=== PATIENT | male | born 1995 | race Two or more races ===

== ENCOUNTER 2024-09-02 00:25 | Emergency (ER) | payer OTHER ==
[~2024-09-02] VITALS: Ht 175.3 cm; Wt 86.5 kg
--- NOTE | 2024-09-02 00:52 | ED.PDOC ---
History of Present Illness HPI Comments 28 y/o M presents with c/c shortness of breath w/exertion, cough, wheezing, and chest congestion. Patient endorses on 1x week history of symptoms. He states on noticing wheezing whenever laying pronated in addition to having 'clear, thick salvia-like' production whenever he coughs. Symptoms is reported to have worsened over the past 2x hours prior to arrival. Attempted to take Mucinex for symptoms, with no relief or improvement. Patient endorses on having no significant medical history along with any relevant recent life-events, such as travel or known sick contact. Denies any chest pain, fever, chills, or further associated symptoms. Upon arrival to ED triage, patient was found with a SpO2 of 88-92% on RA and pulse rate of 120-130. Chief Complaint: Shortness of Breath Time Seen by MD: 00:40 Reviewed Notes: Nurses Notes, Medications, Allergies Allergies: Coded Allergies: NO KNOWN ALLERGIES (Unverified , 09/02/24) Information Source: Patient Mode of Arrival: Ambulatory Severity: Moderate Timing: Days Duration: Since onset Prehospital treatment: None Past Medical History PAST MEDICAL HISTORY: Denies Surgical History: Denies all surgeries Family History Family History: Unknown Social History Smoker: Non-Smoker Alcohol: Denies ETOH Use Drugs: Denies Drug Use Lives In: Home All Other Systems: Reviewed and Negative (Comprehensive systems review obtained and negative except for what is stated in the HPI.) Physical Exam General Appearance: No Apparent Distress, Normal HEENT: Normal ENT Inspection, Pharynx Normal, TMs Normal Neck: Full Range of Motion, Non-Tender, Normal, Normal Inspection Respiratory: Chest Non-Tender, Lungs Clear, No Accessory Muscle Use, No Respiratory Distress, Normal Breath Sounds, Other (tachpneic ) Cardiovascular: No Edema, No JVD, No Murmur, No Gallop, Normal Peripheral Pulses, Tachycardia, Other (regular rhythm ) Breast Exam: Deferred Gastrointestinal: No Organomegaly, Non Tender, No Pulsatile Mass, Normal Bowel Sounds, Soft Genitalia: Deferred Pelvic: Deferred Rectal: Deferred Extremities: No calf tenderness, Normal capillary refill, Normal inspection, Normal range of motion, Non-tender, No pedal edema Musculoskeletal : Apperance: Normal Neurologic: Alert, recruitment director II-XII nml as Tested, No Motor Deficits, Normal Affect, Normal Mood, No Sensory Deficits Cerebellar Function: Normal Reflexes: Normal Skin: Dry, Normal Color, Warm Lymphatic: No Adenopathy Was a procedure done? Was a procedure done?: No EKG EKG #1: Pulse Rate (adult): 127 [place]: Normal Cardiac Rhythm: ST Block: None Hypertrophy: None ST: Normal EKG #2: Pulse Rate (adult): 120 Cardiac Rhythm: ST Block: None Hypertrophy: None ST: Normal Differential Dx Considerations may include: URI, PNA, viral syndrome, KS, PE, ACS, among others X-Ray, Labs, Meds, VS Vital Signs Date Time Temp Pulse Resp B/P (MAP) Pulse Ox O2 Delivery O2 Flow Rate FiO2 09/02/24 05:30 97.6 95 20 149/102 (118) 99 97.6 09/02/24 03:40 96 09/02/24 03:18 120 09/02/24 01:39 120 09/02/24 01:12 14 96 Nasal Cannula* 2 28 09/02/24 00:52 127 09/02/24 00:49 127 09/02/24 00:40 98.7 129 16 141/95 (110) 92 98.7 Lab Test 09/02/24 01:32 09/02/24 00:48 Range/Units Troponin I High Sensitivity < 3 L < 3 L </=54 ng/L White Blood Count 14.1 H 4.4-10.8 10^3/uL Red Blood Count 4.93 4.5-5.90 10^6/uL Hemoglobin 15.8 13.5-17.5 g/dL Hematocrit 46.4 41.0-53.0 % Mean Corpuscular Volume 94.0 80.0-100.0 fL Mean Corpuscular Hemoglobin 32.0 28.0-32.0 pg Mean Corpuscular Hemoglobin Concent 34.0 32.0-36.0 g/dL Red Cell Distribution Width 13.2 11.8-14.3 % Platelet Count 395 140-450 10^3/uL Mean Platelet Volume 7.8 6.9-10.8 fL Neutrophils (%) (Auto) 69.9 37.0-80.0 % Lymphocytes (%) (Auto) 15.4 10.0-50.0 % Monocytes (%) (Auto) 6.9 0.0-12.0 % Eosinophils (%) (Auto) 7.3 H 0.0-7.0 % Basophils (%) (Auto) 0.5 0.0-2.0 % Neutrophils # (Auto) 9.8 H 1.6-8.6 10 ^3/uL Lymphocytes # (Auto) 2.2 0.4-5.4 10 ^3/uL Monocytes # (Auto) 1.0 0-1.3 10 ^3/uL Eosinophils # (Auto) 1.0 H 0-0.8 10 ^3/uL Basophils # (Auto) 0.1 0-0.2 10 ^3/uL Nucleated Red Blood Cells 0.1 % Sodium Level 140 136-145 mmol/L Potassium Level 3.9 3.5-5.1 mmol/L Chloride Level 105 98-107 mmol/L Carbon Dioxide Level 26 20-31 mmol/L Anion Gap 9 5-15 Blood Urea Nitrogen 12 9-23 mg/dL Creatinine 1.23 0.700-1.30 mg/dL Glomerular Filtration Rate Calc 81 >90 mL/min BUN/Creatinine Ratio 9.8 L 10.0-20.0 Serum Glucose 140 H 74-106 mg/dL Lactic Acid Level 0.9 0.4-2.0 mmol/L Calcium Level 9.8 8.7-10.4 mg/dL Current Medications Medications (Trade) Dose Ordered Sig/Jaja Route Start Time Stop Time Status Last Admin Albuterol (Ventolin Medneb) 5 mg ONCE ONCE NEB 09/02/24 00:45 09/02/24 00:46 DC 09/02/24 01:11 Ipratropium [place] (Atrovent Medneb) 0.5 mg ONCE ONCE NEB 09/02/24 00:45 09/02/24 00:46 DC 09/02/24 01:11 Sodium Chloride 1,000 ml @ 1,000 mls/hr Q1H ONCE IV 09/02/24 00:45 09/02/24 01:44 DC 09/02/24 04:[address] [address] Ph: [phone] DIAGNOSTIC IMAGING Diagnostic Imaging Report : [id number] Signed PATIENT: MYRIAM WELCH ACCT: [id number] UNIT: [id number] : 1995 LOC: ER ROOM / BED: / AGE / SEX: 28 / M ADM STATUS: REG ER SERVICE 0044 ORDERING PHYSICIAN: PROSPER LOUISE MD PROCEDURE(s): CXRP - CHEST PORTABLE REASON: sob ORDER NUMBER(s): [id number], ACCESSION NUMBER(s): [id number] CHEST RADIOGRAPH Indication: sob Technique: Single frontal view of the chest was obtained COMPARISON: None FINDINGS: Lines and Tubes: None Lungs: Clear Pleura: No effusion. No pneumothorax. Cardiomediastinal contours: Unremarkable Bones: Unremarkable IMPRESSION: 1. No acute disease. ATED BY: BANDAR HERMOSILLO MD DICTATED DATE/TIME: 09/02/24142 SIGNED BY: BANDAR HERMOSILLO MD SIGNED DATE/TIME: 09/02/24142 CC: Time of 1ST Reevaluation: 01:20 Reevaluation 1ST: Unchanged Patient Education/Counseling: Diagnosis, Treatment, Need For Follow Up Family Education/Counseling: No Family Present Additional Information Previous visits reviewed: N/A The following tests were ordered, and results were reviewed by me: CXR, CBC, BMP, blood culture, troponin, lactic acid w/reflex Additional Information was gathered from interviewing the following independent historians: N/A I reviewed and agreed with the following test results read by other providers: CXR I discussed treatment and results with medical personnel and: patient SEPSIS Sepsis Screen Physician Orders Blood Culture (09/02/24 00:44) Chest Portable (09/02/24 00:44) Electrocardigram (09/02/24 01:44) Electrocardigram (09/02/24 03:44) Covid19 Antigen Any[place] (09/02/24 ) Rapid Influenza A&B (09/02/24 03:17) Vital Signs Date Time Temp Pulse Resp B/P (MAP) Pulse Ox O2 Delivery O2 Flow Rate FiO2 09/02/24 05:30 97.6 95 20 149/102 (118) 99 97.6 09/02/24 03:40 96 09/02/24 03:18 120 09/02/24 01:39 120 09/02/24 01:12 14 96 Nasal Cannula* 2 28 09/02/24 00:52 127 09/02/24 00:49 127 09/02/24 00:40 98.7 129 16 141/95 (110) 92 98.7 Laboratory Tests Test 09/02/24 00:48 Lactic Acid Level 0.9 mmol/L (0.4-2.0) White Blood Count 14.1 10^3/uL (4.4-10.8) H Medications Medications Dose Ordered Sig/Jaja Route Start Time Stop Time Status Last Admin Dose Admin Albuterol 5 mg ONCE ONCE NEB 09/02/24 00:45 09/02/24 00:46 DC 09/02/24 01:11 Ipratropium [place] 0.5 mg ONCE ONCE NEB 09/02/24 00:45 09/02/24 00:46 DC 09/02/24 01:11 Sodium Chloride 1,000 ml @ 1,000 mls/hr Q1H ONCE IV 09/02/24 00:45 09/02/24 01:44 DC 09/02/24 04:36 Departure 1 Departure Time of Disposition: 06:02 (Patient is feeling significantly better. Patient likely an asthma exacerbation we will discharge patient home with outpatient follow up) Impression: Primary Impression: Shortness of breath Disposition: 01 HOME / SELF CARE / HOMELESS Condition: Stable Additional Instructions: You likely had an asthma exacerbation. You should use your inhaler as directed. Your prescribed steroids. Please take as directed. It is important to follow up with the regular doctor within 1 week. If your symptoms worsen or you have any other concerns please return to the emergency room. e-Prescriptions Albuterol Sulfate (VENTOLIN MDI) 90 Mcg Ih 90 MCG IN QID for 10 Days, #1 INH Prov: PROSPER LOUISE MD 09/02/24 Prednisone (Prednisone) 20 Mg Tab 40 MG PO DAILY for 5 Days, #10 MG Prov: PROSPER LOUISE MD 09/02/24 Discharged With: Self Critical Care Note Critical Care Time?: No Stability Stability form required: No Heart Score Heart Score: Heart Score Response (Comments) Value History Slightly Suspicious 0 EKG Normal 0 Age <45 0 Risk Factors No known risk factors 0 Troponin Normal limit 0 Total 0 I personally scribed for PROSPER LOUISE MD ([email or web address]) on 09/02/24 at 00:52. Electronically submitted by Jimmy Monroe ([email or web address]). I personally scribed for PROSPER LOUISE MD ([email or web address]) on 09/02/24 at 03:18. Electronically submitted by Jimmy Monroe ([email or web address]). PROSPER LOUISE MD Sep 02, 2024 00:52
[2024-09-02 01:01] LABS: Hematocrit 46.4 % (41.0-53.0); Hemoglobin 15.8 g/dL (13.5-17.5); Mean Corpuscular Hemoglobin 32.0 pg (28.0-32.0); Mean Corpuscular Volume 94.0 fL (80.0-100.0); Nucleated Red Blood Cells % 0.1 %
[2024-09-02 01:09] LABS: Chloride 105 mmol/L (98-107); Potassium 3.9 mmol/L (3.5-5.1); Sodium 140 mmol/L (136-145)
[2024-09-02 01:10] LABS: Anion Gap 9 (5-15); Carbon Dioxide 26 mmol/L (20-31)
[2024-09-02 01:11] LABS: Calcium 9.8 mg/dL (8.7-10.4)
[2024-09-02] MEDS: IPRATROPIUM BROM 0.5 MG/2.5ML INH SOL NEB ONE (01:11)
[2024-09-02] MEDS: ALBUTEROL SULF 2.5 MG/0.5ML(0.5%) NEB SOLN NEB ONE (01:11)
[2024-09-02 01:16] LABS: BUN/Creatinine Ratio 9.8 (10.0-20.0); Blood Urea Nitrogen 12 mg/dL (9-23)
[2024-09-02 01:19] LABS: Glucose 140 mg/dL (74-106)
--- NOTE | 2024-09-02 01:46 | DVH ---
CHEST RADIOGRAPH Indication: sob Technique: Single frontal view of the chest was obtained COMPARISON: None FINDINGS: Lines and Tubes: None Lungs: Clear Pleura: No effusion. No pneumothorax. Cardiomediastinal contours: Unremarkable Bones: Unremarkable IMPRESSION: 1. No acute disease.
[2024-09-02] MEDS: SODIUM CHLORIDE 0.9% 1,000 ML IV ONE (04:36)
[2024-09-02 05:30] VITALS: BP 149/102; PULSE 95; TEMP 97.6; O2SAT 99
--- NOTE | 2024-09-02 05:55 | ECG ---
[facility] Test Date: 2024-09-02 Test Time: 03:40:19 Pat Name: MYRIAM WELCH Department: ED Room: Gender: M Computer Help Desk Representative: CLAIRE : 1995 Requested By: PROSPER LOUISE Order Number: [id number] Reading MD: Angel Menard Measurements Intervals [place] Rate: 96 P: 37 IN: 112 QRS: 20 QRSD: 82 T: 13 QT: 344 QTc: 435 Interpretive Statements Sinus rhythm Borderline short IN interval Inferior infarct, old Electronically Signed On 09-04-2024 15:55:42 PDT by Angel Menard Please click the below link to view image of tracing.
[2024-09-02 06:00] VITALS: RESP 16
[2024-09-02] MEDS ORDERED: ALBUAER3 IN (06:03)
[2024-09-02] MEDS ORDERED: PRED20TA2 PO (06:03)
--- NOTE | 2024-09-04 07:51 | ECG ---
[facility] Test Date: 2024-09-02 Test Time: 01:39:40 Pat Name: MYRIAM WELCH Department: ED Room: Gender: M Automotive Design Drafter: levi : 1995 Requested By: PROSPER LOUISE Order Number: [id number] Reading MD: Angel Menard Measurements Intervals [place] Rate: 120 P: 62 MA: 116 QRS: 14 QRSD: 78 T: 4 QT: 307 QTc: 434 Interpretive Statements Sinus tachycardia Borderline T wave abnormalities Electronically Signed On 09-04-2024 15:55:30 PDT by Angel Menard Please click the below link to view image of tracing.
--- NOTE | 2024-09-04 07:51 | ECG ---
[facility] Test Date: 2024-09-02 Test Time: 00:49:23 Pat Name: MYRIAM WELCH Department: ED Room: Gender: M Instrument Repairer Helper: KEVIN : 1995 Requested By: PROSPER LOUISE Order Number: [id number] Reading MD: Angel Menard Measurements Intervals [place] Rate: 127 P: 64 VA: 103 QRS: 42 QRSD: 74 T: 38 QT: 291 QTc: 424 Interpretive Statements Sinus tachycardia Electronically Signed On 09-04-2024 15:55:25 PDT by Angel Menard Please click the below link to view image of tracing.
== END 2024-09-02 06:29 | disposition home or self-care (01) ==
LOC: ER 00:25
DX: R06.02 Shortness of breath (principal)
CPT/HCPCS: 36415; 71045; 80048; 83605; 84484; 85025; 87040; 93005; 94640; 96360; 99285; J7030

== ENCOUNTER 2025-01-16 17:13 | Emergency (ER) | payer OTHER ==
[~2025-01-16] VITALS: Ht 175.3 cm; Wt 180.0 kg
[~2025-01-16 17:13] MED LIST: ALBUAER3 IN; PRED20TA2 PO
[2025-01-16 17:48] VITALS: PULSE 126; RESP 15; O2SAT 95
--- NOTE | 2025-01-16 18:21 | ED.PDOC ---
SOB-HPI HPI Comments 29 y/o M, presents to the ED for CC of shortness of breath. Patient states, he has been experiencing symptoms of shortness of breath with an associated cough [id number]. Patient reports, being seen at ED for SS on Monday (01/12/25) and being told symptoms where most likely viral d/t all testing coming back unremarkable. Patient endorses, following up with his PCP today (01/16/25) and was relayed to the ED for a further evaluation d/t being hypoxic and tachycardiac. Patient comments, symptom worsen when lying down having frequent coughing fits. No other symptoms or modifying factors are present at this time. Chief Complaint: Shortness of Breath Time Seen by MD: 18:15 Reviewed notes: Nurses Notes, Medications, Allergies Information Source: Patient Mode of Arrival: EMS Severity: Moderate Timing: Weeks Duration: Since onset Context: At Rest PE Risk Factors: None History of: Other Prehospital treatment: None Modifying Factors: Laying flat Associated Signs and Symptoms: Cough Past Medical History PAST MEDICAL HISTORY: Denies Surgical History: Denies all surgeries Family History Family History: Unknown Social History Smoker: Non-Smoker Alcohol: Denies ETOH Use Drugs: Denies Drug Use Lives In: Home Constitutional: denies: chills, diaphoresis, fatigue, fever, malaise, sweats, weakness, others EENTM: denies: blurred vision, double vision, ear bleeding, ear discharge, ear drainage, ear pain, ear ringing, eye pain, eye redness, hearing loss, mouth pain, mouth swelling, nasal discharge, nose bleeding, nose congestion, nose pain, photophobia, tearing, throat pain, throat swelling, voice changes, others Respiratory: reports: cough, shortness of breath; denies: hemoptysis, orthopnea, SOB at rest, SOB with excertion, stridor, wheezing, others Cardiovascular: denies: chest pain, dizzy spells, diaphoresis, Dyspnea on exertion, edema, irregular heart beat, left arm pain, lightheadedness, palpitations, PND, syncope, others Gastrointestinal: denies: abdomen distended, abdominal pain, blood streaked bowels, constipated, diarrhea, dysphagia, difficulty swallowing, hematemesis, melena, nausea, poor appetite, poor fluid intake, rectal bleeding, rectal pain, vomiting, others Genitourinary: denies: burning, dysuria, flank pain, frequency, hematuria, incontinence, penile discharge, penile sore, pain, testicle pain, testicle swelling, urgency, others Neurological: denies: dizziness, fainting, headache, left sided numbness, left sided weakness, numbness, paresthesia, pre-existing deficit, right sided numbness, right sided weakness, seizure, speech problems, tingling, tremors, weakness, others Musculoskeletal: denies: back pain, gout, joint pain, joint swelling, muscle pain, muscle stiffness, neck pain, others Integumetry: denies: bruises, change in color, change in hair/nails, dryness, laceration, lesions, lumps, rash, wounds, others Allergic/Immunocompromised: denies: Difficulty Healing, Frequent Infections, Hives, Itching, others Hematologic/Lymphatic: denies: anemia, blood clots, easy bleeding, easy bruising, swollen glands, others Endocrine: denies: excessive hunger, excessive sweating, excessive thirst, excessive urination, flushing, intolerance to cold, intolerance to heat, unexplained weight gain, unexplained weight loss, others Psychiatric: denies: anxiety, bipolar disorder, depression, hopeless, panic disorder, schizophrenia, sleepless, suicidal, others All Other Systems: Reviewed and Negative Physical Exam General Appearance: No Apparent Distress, Normal HEENT: Normal ENT Inspection, Pharynx Normal Neck: Full Range of Motion, Non-Tender, Normal, Normal Inspection Respiratory: Chest Non-Tender, Crackles, No Accessory Muscle Use, No Respiratory Distress, Wheezing Cardiovascular: No Edema, No Murmur, No Gallop, Normal Peripheral Pulses, Regular Rate/Rhythm Breast Exam: Deferred Gastrointestinal: No Organomegaly, Non Tender, No Pulsatile Mass, Normal Bowel Sounds, Soft Genitalia: Deferred Pelvic: Deferred Rectal: Deferred Extremities: No calf tenderness, Normal capillary refill, Normal inspection, Normal range of motion, Non-tender, No pedal edema Musculoskeletal : Apperance: Normal Neurologic: Alert, paralegal instructor II-XII nml as Tested, No Motor Deficits, Normal Affect, Normal Mood, No Sensory Deficits Cerebellar Function: Normal Reflexes: Normal Skin: Dry, Normal Color, Warm Lymphatic: No Adenopathy Was a procedure done? Was a procedure done?: No Differential Dx Differential Diagnosis: Asthma, Pneumonia, Pharyngitis, URI X-Ray, Labs, Meds, VS Vital Signs Date Time Temp Pulse Resp B/P (MAP) Pulse Ox O2 Delivery O2 Flow Rate FiO2 01/16/25 22:26 108 16 97 01/16/25 22:00 103 14 131/79 (96) 92 01/16/25 21:24 18 95 Nasal Cannula* 3 32 01/16/25 20:00 98 01/16/25 19:22 118 14 93 Nasal Cannula* 4 36 01/16/25 19:21 98.9 118 14 136/96 (109) 93 98.9 01/16/25 18:31 20 96 Nasal Cannula* 4 36 01/16/25 17:48 126 15 95 Nasal Cannula* 4 36 01/16/25 17:48 99.3 126 15 126/91 (103) 95 99.3 01/16/25 17:20 98.7 124 20 127/93 97 98.7 Lab Test 01/16/25 21:30 01/16/25 18:15 Range/Units Urine Color Yellow Yellow Urine Clarity Clear Clear Urine pH 7.5 5.0-9.0 Urine Specific [place] 1.022 1.001-1.035 Urine Protein Negative Negative Urine Ketones Negative Negative Urine Blood Negative Negative /uL Urine Nitrite Negative Negative Urine Bilirubin Negative Negative Urine Urobilinogen Normal Negative mg/dL Urine Leukocyte Esterase Negative Negative /uL Urine RBC 2 0 - 3 /hpf Urine Microscopic WBC 0-3 /HPF Urine Squamous Epithelial Cells Few <5 /hpf Urine Bacteria None seen None Seen /hpf Urine Mucus Few None Seen Urine Glucose Normal Normal mg/dL White Blood Count 12.1 H 4.4-10.8 10^3/uL Red Blood Count 5.42 4.5-5.90 10^6/uL Hemoglobin 17.2 13.5-17.5 g/dL Hematocrit 51.1 41.0-53.0 % Mean Corpuscular Volume 94.3 80.0-100.0 fL Mean Corpuscular Hemoglobin 31.7 28.0-32.0 pg Mean Corpuscular Hemoglobin Concent 33.6 32.0-36.0 g/dL Red Cell Distribution Width 13.1 11.8-14.3 % Platelet Count 384 140-450 10^3/uL Mean Platelet Volume 7.7 6.9-10.8 fL Neutrophils (%) (Auto) 82.0 H 37.0-80.0 % Lymphocytes (%) (Auto) 9.4 L 10.0-50.0 % Monocytes (%) (Auto) 6.0 0.0-12.0 % Eosinophils (%) (Auto) 2.2 0.0-7.0 % Basophils (%) (Auto) 0.4 0.0-2.0 % Neutrophils # (Auto) 9.9 H 1.6-8.6 10 ^3/uL Lymphocytes # (Auto) 1.1 0.4-5.4 10 ^3/uL Monocytes # (Auto) 0.7 0-1.3 10 ^3/uL Eosinophils # (Auto) 0.3 0-0.8 10 ^3/uL Basophils # (Auto) 0.1 0-0.2 10 ^3/uL Nucleated Red Blood Cells 0.1 % Sodium Level 143 136-145 mmol/L Potassium Level 3.9 3.5-5.1 mmol/L Chloride Level 102 98-107 mmol/L Carbon Dioxide Level 29 20-31 mmol/L Anion Gap 12 5-15 Blood Urea Nitrogen 10 9-23 mg/dL Creatinine 1.08 0.700-1.30 mg/dL Glomerular Filtration Rate Calc 94 >90 mL/min BUN/Creatinine Ratio 9.3 L 10.0-20.0 Serum Glucose 100 74-106 mg/dL Lactic Acid Level 1.6 0.4-2.0 mmol/L Calcium Level 10.0 8.7-10.4 mg/dL Total Bilirubin 0.4 0.2-1.0 mg/dL Aspartate Amino Transferase (AST) 42 H 13-40 U/L Alanine Aminotransferase (ALT) 76 H 7-40 U/L Alkaline Phosphatase 84 46-116 U/L Total Protein 8.7 H 5.7-8.2 g/dL Albumin 5.1 H 3.2-4.8 g/dL Current Medications Medications (Trade) Dose Ordered Sig/Jaja Route Start Time Stop Time Status Last Admin Albuterol (Ventolin Medneb) 2.5 mg ONCE ONCE NEB 01/16/25 18:15 01/16/25 18:16 DC 01/16/25 18:30 Ipratropium [place] (Atrovent Medneb) 0.5 mg ONCE ONCE NEB 01/16/25 18:15 01/16/25 18:16 DC 12/4/25 18:30 Dexamethasone Sodium Phosphate (Decadron Injection) 10 mg ONCE ONCE IV 01/16/25 18:15 01/16/25 18:16 DC 01/16/25 18:31 Albuterol (Ventolin Medneb) 2.5 mg ONCE ONCE NEB 01/16/25 21:15 01/16/25 21:16 DC 01/16/25 21:23 Ipratropium [place] (Atrovent Medneb) 0.5 mg ONCE ONCE NEB 01/16/25 21:15 01/16/25 21:16 DC 01/16/25 21:23 Sodium Chloride 1,000 ml @ 1,000 mls/hr Q1H ONCE IV 01/16/25 21:30 01/16/25 22:29 DC 01/16/25 21:44 [place] [address] Ph: [phone] DIAGNOSTIC IMAGING Diagnostic Imaging Report : [id number] Signed PATIENT: MYRIAM WELCHCCT: [id number] UNIT: [id number] : 1995 LOC: ER ROOM / BED: / AGE / SEX: 29 / M ADM STATUS: REG ER SERVICE 07 ORDERING PHYSICIAN: RITA GOMEZ PROCEDURE(s): CXR1 - CHEST XRAY 1 VIEW REASON: sob ORDER NUMBER(s): [id number], ACCESSION NUMBER(s): [id number] CLINICAL HISTORY: sob TECHNIQUE: 1 view of the chest was obtained. WID: COMPARISON: XY CHEST PORTABLE on DOS: 09/02/24 FINDINGS: Lungs: clear Cardiomediastinal silhouette: normal in size Bones: No acute osseous abnormality. Imaged Upper Abdomen: unremarkable. IMPRESSION: NO ACUTE CARDIOPULMONARY PROCESS. ATED BY: ALCIRA HOLLAND MD DICTATED DATE/TIME: 01/16/251846 SIGNED BY: ALCIRA HOLLAND MD SIGNED DATE/TIME: 01/16/251846 CC: X-Ray, Labs, Meds, VS Comment Patient reports good improvement in his breathing after breathing treatments. Patient states he has radiating wanting to go home Spoke with [facility], they states they will place a call for his PCP to see next available appointment Patient be started on prednisone and azithromycin sent home with Elsy Truong Time of 1ST Reevaluation: 18:45 Reevaluation 1ST: Unchanged Patient Education/Counseling: Diagnosis, Treatment, Need For Follow Up (Follow up with PCP next available appointment.) Family Education/Counseling: No Family Present SEPSIS Sepsis Screen Date sepsis recognized/suspect: Jan 16, 2025 Time Sepsis recognized/suspect: 1722 Recent Procedure: No On Antibiotic Therapy: No Respiratory Rate >20: No Heart Rate >90: Yes Temp<36 C (96.8 F) or >38.3 C: No SBP <90 or MAP <65 mmHG: No New Acute Mental Status Change: No Is the patient on CPAP, BIPAP,: No Physician Orders Chest Xray 1 View (01/16/25 18:08) Vital Signs Date Time Temp Pulse Resp B/P (MAP) Pulse Ox O2 Delivery O2 Flow Rate FiO2 01/16/25 22:26 108 16 97 01/16/25 22:00 103 14 131/79 (96) 92 01/16/25 21:24 18 95 Nasal Cannula* 3 32 01/16/25 20:00 98 01/16/25 19:22 118 14 93 Nasal Cannula* 4 36 01/16/25 19:21 98.9 118 14 136/96 (109) 93 98.9 01/16/25 18:31 20 96 Nasal Cannula* 4 36 01/16/25 17:48 126 15 95 Nasal Cannula* 4 36 01/16/25 17:48 99.3 126 15 126/91 (103) 95 99.3 01/16/25 17:20 98.7 124 20 127/93 97 98.7 Laboratory Tests Test 01/16/25 18:15 Lactic Acid Level 1.6 mmol/L (0.4-2.0) White Blood Count 12.1 10^3/uL (4.4-10.8) H Medications Medications Dose Ordered Sig/Jaja Route Start Time Stop Time Status Last Admin Dose Admin Albuterol 2.5 mg ONCE ONCE NEB 01/16/25 18:15 01/16/25 18:16 DC 01/16/25 18:30 Albuterol 2.5 mg ONCE ONCE NEB 01/16/25 21:15 01/16/25 21:16 DC 01/16/25 21:23 Dexamethasone Sodium Phosphate 10 mg ONCE ONCE IV 01/16/25 18:15 01/16/25 18:16 DC 01/16/25 18:31 Ipratropium [place] 0.5 mg ONCE ONCE NEB 01/16/25 18:15 01/16/25 18:16 DC 01/16/25 18:30 Ipratropium [place] 0.5 mg ONCE ONCE NEB 01/16/25 21:15 01/16/25 21:16 DC 01/16/25 21:23 Sodium Chloride 1,000 ml @ 1,000 mls/hr Q1H ONCE IV 01/16/25 21:30 01/16/25 22:29 DC 01/16/25 21:44 Departure 1 Departure Time of Disposition: 22:55 Impression: Primary Impression: Shortness of breath Additional Impression: Bronchitis Disposition: HOME / SELF CARE / HOMELESS Condition: Stable e-Prescriptions Prednisone (Prednisone) 20 Mg Tab 20 MG PO DAILY for 5 Days, #5 MG Prov: RITA GOMEZP 01/16/25 Benzonatate (Benzonatate) 200 Mg Cap 1 CAP PO TID PRN, #30 CAP Prov: RITA GOMEZP 01/16/25 Azithromycin (Zithromax Z-Mario) 250 Mg Tab 250 MG PO DAILY for 5 Days, #5 TAB Prov: RITA GOMEZP 01/16/25 Discharged With: Self Critical Care Note Critical Care Time?: No Stability Stability form required: No Heart Score Heart Score: Heart Score Response (Comments) Value History N/A 0 EKG N/A 0 Age N/A 0 Risk Factors N/A 0 Troponin N/A 0 Total 0 I personally scribed for RITA GOMEZ AUTO CAMP ATTENDANT ([email or web address]) on 01/16/25 at 18:21. Electronically submitted by Sheila Gonzalez ([email or web address]). I personally scribed for RITA GOMEZ AUTO CAMP ATTENDANT ([email or web address]) on 01/16/25 at 19:42. Electronically submitted by Sheila Gonzalez ([email or web address]). RITA GOMEZ Jan 16, 2025 18:21
[2025-01-16] MEDS: ALBUTEROL SULF 2.5 MG/0.5ML(0.5%) NEB SOLN NEB ONE ×2 (18:30→21:23)
[2025-01-16] MEDS: IPRATROPIUM BROM 0.5 MG/2.5ML INH SOL NEB ONE ×2 (18:30→21:23)
[2025-01-16 18:32] LABS: Hematocrit 51.1 % (41.0-53.0); Hemoglobin 17.2 g/dL (13.5-17.5); Mean Corpuscular Hemoglobin 31.7 pg (28.0-32.0); Mean Corpuscular Volume 94.3 fL (80.0-100.0); Nucleated Red Blood Cells % 0.1 %
--- NOTE | 2025-01-16 18:47 | DVH ---
CLINICAL HISTORY: sob TECHNIQUE: 1 view of the chest was obtained. WID: COMPARISON: XY CHEST PORTABLE on DOS: 09/02/24 FINDINGS: Lungs: clear Cardiomediastinal silhouette: normal in size Bones: No acute osseous abnormality. Imaged Upper Abdomen: unremarkable. IMPRESSION: NO ACUTE CARDIOPULMONARY PROCESS.
[2025-01-16 18:50] LABS: Alkaline Phosphatase 84 U/L (46-116); Anion Gap 12 (5-15); BUN/Creatinine Ratio 9.3 (10.0-20.0); Blood Urea Nitrogen 10 mg/dL (9-23); Calcium 10.0 mg/dL (8.7-10.4); Carbon Dioxide 29 mmol/L (20-31); Chloride 102 mmol/L (98-107); Glucose 100 mg/dL (74-106); Potassium 3.9 mmol/L (3.5-5.1); Sodium 143 mmol/L (136-145)
[2025-01-16 18:51] LABS: Alanine Aminotransferase 76 U/L (7-40); Albumin 5.1 g/dL (3.2-4.8); Bilirubin, Total 0.4 mg/dL (0.2-1.0); Total Protein 8.7 g/dL (5.7-8.2)
[2025-01-16 19:22] VITALS: PULSE 118; RESP 14; O2SAT 93
[2025-01-16] MEDS: SODIUM CHLORIDE 0.9% 1,000 ML IV ONE (21:44)
[2025-01-16 22:20] LABS: Urine Protein, UAD Negative (Negative)
[2025-01-16] MEDS ORDERED: PRED20TA2 PO (23:01)
[2025-01-16] MEDS ORDERED: AZITTAB PO (23:01)
[2025-01-16] MEDS ORDERED: BENZ200C64 PO (23:01)
[2025-01-17 00:08] VITALS: BP 139/94; PULSE 106; RESP 14; TEMP 97.9; O2SAT 93
== END 2025-01-17 01:27 | disposition home or self-care (01) ==
LOC: EDBD 17:13 → ER 17:13 → EDUNIT# 17:13 → ER 01-17 00:12
DX: J40 Bronchitis, not specified as acute or chronic (principal); R06.02 Shortness of breath
CPT/HCPCS: 36415; 71045; 80053; 81001; 83605; 85025; 94640; 96361; 96374; 99285; J1100; J7030